=== PATIENT | female | born 1995 | race Caucasian/White ===

== ENCOUNTER 2021-01-06 01:28 | Emergency (ER) | payer OTHER ==
[2021-01-06 01:42] VITALS: BP 116/73; PULSE 77; TEMP 98.3; BMI 28.3
[2021-01-06] MEDS ORDERED: LIDOCAINE 2.5%/PRILOCAINE 2.5% (5 Gram/TUBE) TP ONE (02:27)
[2021-01-06] MEDS ORDERED: LIDOCAINE 2.5%/PRILOCAINE 2.5% 30 GRAM TUBE TP ONE (02:27)
[2021-01-06] MEDS ORDERED: DIPHTH,PERTUSS(ACELL),TET 0.5 ML DISP.SYRIN IM ONE ×2 (02:44→04:34)
== END 2021-01-06 04:42 | disposition home or self-care (01) ==
LOC: JER 01:28
PROC: 0HQLXZZ Repair Left Lower Leg Skin, External Approach (ICD-10-PCS; principal; 2021-01-06)
PROC: 3E0234Z Introduction of Serum, Toxoid and Vaccine into Muscle, Percutaneous Approach (ICD-10-PCS; 2021-01-06)
DX: S91.012A Laceration without foreign body, left ankle, initial encounter (principal); W22.8XXA Striking against or struck by other objects, initial encounter
CPT/HCPCS: 90715; 99284-25

== ENCOUNTER 2021-10-03 22:41 | Emergency (ER) | payer OTHER ==
[2021-10-03 22:50] VITALS: BP 134/76; TEMP 97.5; BMI 22.6
[2021-10-04] MEDS ORDERED: SODIUM CHLORIDE 0.9% 1000 ML INFUS.BAG IV ONE
[2021-10-04 00:39] LABS: BASO % 1.1 % (0-2.0); EOS % 2.9 % (0-4.5); HEMATOCRIT 42.3 % (32.4-45.2); HEMOGLOBIN 14.4 GM/dL (10.7-15.3); LYMPH % 34.5 % (8-40); MCH 29.4 pg (25.7-33.7); MCHC 34.1 g/dl (32.0-36.0); MEAN CELL VOLUME 86.4 fl (80-96); MEAN PLT VOLUME 6.9 fl (7.5-11.1); MONO % 7.3 % (3.8-10.2); NEUT % 54.2 % (42.8-82.8); PLATELET COUNT 321 10^3/uL (134-434); RDW 13.2 % (11.6-15.6); WHITE BLOOD COUNT 6.9 K/mm3 (4.0-10.0)
[2021-10-04 00:53] LABS: INR 1.01 (0.83-1.09); PROTHROMBIN TIME (PATIENT) 11.6 SEC (9.7-13.0)
[2021-10-04 00:55] LABS: ACTIVATED PTT 33.3 SECONDS (25.2-36.5)
[2021-10-04 01:02] LABS: CALCIUM 9.4 mg/dL (8.5-10.1)
[2021-10-04 01:03] LABS: ALBUMIN 4.1 g/dl (3.4-5.0)
[2021-10-04 01:06] LABS: CREATININE 0.8 mg/dL (0.55-1.3)
[2021-10-04 01:08] LABS: BILIRUBIN,TOTAL 0.3 mg/dL (0.2-1); TOT PROT 7.8 g/dl (6.4-8.2)
[2021-10-04 02:49] VITALS: PULSE 86
== END 2021-10-04 02:50 | disposition home or self-care (01) ==
LOC: JER 22:41
DX: R00.2 Palpitations (principal)
CPT/HCPCS: 36415; 71046-TC-FY; 80053; 84484; 84703; 85025; 85379; 85610; 85730; 93005; 93010; 93308; 99285-25; C9803-CS; U0003; U0005